=== PATIENT | female | born 1970 | race African-American/Black ===

== ENCOUNTER 2021-06-05 04:42 | Inpatient (IN) ==
[2021-06-05] MEDS ORDERED: FAMOTIDINE 20 MG/2 ML VIAL IV STA (05:18)
[2021-06-05] MEDS ORDERED: methylPREDNISolone SOD SUC 125 MG/2 ML VIAL IV STA (05:18)
[2021-06-05] MEDS ORDERED: diphenhydrAMINE 50 MG/1 ML VIAL IV STA (05:18)
[2021-06-05] MEDS ORDERED: EPINEPHrine 1 MG/ML VIAL SUBCUT STA (05:18)
[2021-06-05] MEDS ORDERED: SODIUM CHLORIDE 0.9% 1,000 ML IV PRN (05:26)
[2021-06-05 06:27] LABS: Basophils % 0.1 % (0.0-0.8); Hemoglobin 10.4 GM/DL (12.0-16.0); Immature Granulocytes % 0.4 %; Immature Granulocytes Absolute 0.03 #; Lymphocytes # 2.2 10*3/uL (1.4-4.0); Mean Corpuscular HGB Conc 29.2 GM/DL (32-36); Mean Corpuscular Volume 74.9 FL (87-102); Mean Platelet Volume 9.7 FL (9.6-12.0); Monocytes % 7.4 % (1.7-12.7); Neutrophils % 64.1 % (38.7-73.9); Platelet Count 277 T/CUMM (130-400); Red Blood Count 4.75 MC/CUMM (3.8-5.5); Red Cell Distribution Width 19.7 % (9.3-17.3); White Blood Count 7.7 T/CUMM (4-12)
[2021-06-05 06:41] LABS: Alanine Aminotransferase 28 U/L (13-56); Albumin 3.7 G/DL (3.4-5.0); Alkaline Phosphatase 61 U/L (45-117); Aspartate Amino Transferase 33 U/L (0-37); Bilirubin,Total < 0.39 MG/DL (0.20-1.00); Blood Urea Nitrogen 11 MG/DL (7-18); Calcium 9.2 MG/DL (8.5-10.1); Carbon Dioxide 27 MMOL/L (21-32); Estimated Glom Filtration Rate 97 ML/MIN; Glucose 112 MG/DL (74-106); Potassium 3.4 MMOL/L (3.5-5.1); Sodium 136 MMOL/L (136-145); Total Protein 7.8 G/DL (6.4-8.2)
[2021-06-05 07:25] LABS: Hematocrit 35.6 VOL% (35.7-47.0)
[2021-06-05 07:29] LABS: Hypochromia 1+; Microcytosis 1+
[2021-06-05 07:30] LABS: Ovalocytes Slight; Platelet Estimate Normal
[2021-06-05] MEDS ORDERED: ALBUTEROL 2.5 MG/3 ML NEB RESP TX PRN (08:37)
[2021-06-05] MEDS ORDERED: ONDANSETRON 4 MG/2 ML VIAL IV PRN (08:37)
[2021-06-05] MEDS ORDERED: diphenhydrAMINE CAP 25 MG CAPSULE PO PRN (08:39)
[2021-06-05] MEDS ORDERED: POTASSIUM CHLORIDE 20 MEQ TABLET PO ONE (08:41)
[2021-06-05] MEDS: ENOXAPARIN 40 MG/0.4 ML SYRINGE SUBCUT SCH (10:00)
[2021-06-05] MEDS: amLODIPine 5 MG TABLET PO SCH (10:00)
[2021-06-05] MEDS: FAMOTIDINE 20 MG/2 ML VIAL IV SCH ×2 (10:01→20:18)
[2021-06-05] MEDS: methylPREDNISolone SOD SUC 40 MG/1 ML VIAL IV SCH ×2 (10:04→17:03)
[2021-06-05 13:39] VITALS: BP 152/86
[2021-06-06] MEDS: methylPREDNISolone SOD SUC 40 MG/1 ML VIAL IV SCH ×3 (00:21→16:15)
[2021-06-06 04:21] LABS: Calcium 9.1 MG/DL (8.5-10.1); Osmolality,Calculated 270.1 MOS/KG (273-304); Potassium 3.5 MMOL/L (3.5-5.1)
[2021-06-06 04:31] LABS: Basophils % 0.2 % (0.0-0.8); Hematocrit 35.2 VOL% (35.7-47.0); Hemoglobin 10.4 GM/DL (12.0-16.0); Immature Granulocytes % 0.5 %; Immature Granulocytes Absolute 0.05 #; Lymphocytes # 1.2 10*3/uL (1.4-4.0); Lymphocytes % 12.4 % (21.3-54.2); Mean Corpuscular HGB Conc 29.5 GM/DL (32-36); Mean Corpuscular Volume 73.8 FL (87-102); Mean Platelet Volume 11.4 FL (9.6-12.0); Monocytes % 2.8 % (1.7-12.7); Neutrophils % 84.1 % (38.7-73.9); Platelet Count 193 T/CUMM (130-400); Red Blood Count 4.77 MC/CUMM (3.8-5.5); Red Cell Distribution Width 19.6 % (9.3-17.3); White Blood Count 9.6 T/CUMM (4-12)
[2021-06-06 04:44] LABS: Hypochromia 2+; Microcytosis 1+; Ovalocytes Slight
[2021-06-06 04:45] LABS: Platelet Estimate Adequate
[2021-06-06] MEDS ORDERED: POTASSIUM CHLORIDE 20 MEQ TABLET PO ONE (08:01)
[2021-06-06] MEDS: FAMOTIDINE 20 MG/2 ML VIAL IV SCH (08:46)
[2021-06-06] MEDS: ENOXAPARIN 40 MG/0.4 ML SYRINGE SUBCUT SCH (08:46)
[2021-06-06] MEDS: amLODIPine 5 MG TABLET PO SCH (08:47)
== END 2021-06-06 16:41 | disposition home or self-care (01) | DRG 916 ==
LOC: N.ED 04:42 → N.2E 08:37 → N.CC 09:30
PROVIDERS: ADMIT Family Medicine; ATTEND Family Medicine